=== PATIENT | female | born 1995 | race Hispanic/Latino ===

== ENCOUNTER 2019-02-10 10:20 | Inpatient (IN) | payer OTHER, SELFPAY ==
[2019-02-10] MEDS ORDERED: Promethazine HCl 25 MG/ML VIAL IM PRN ×3 (11:04→14:01)
[2019-02-10] MEDS ORDERED: Ondansetron PF 4 MG/2 ML Vial IVP PRN ×3 (11:04→14:01)
[2019-02-10] MEDS ORDERED: Lactated Ringer's 1,000 ML IV SCH (11:04)
[2019-02-10] MEDS ORDERED: CEFAZOLIN 2 GM in Premix Bag 1 BAG IVPB SCH (11:04)
[2019-02-10] MEDS ORDERED: Bicitra 30 ML UDCUP PO SCH (11:04)
[2019-02-10 11:22] VITALS: BMI 37.4
[2019-02-10] MEDS ORDERED: Bicitra 30 ML UDCUP ONE (12:00)
[2019-02-10] MEDS ORDERED: MORPHINE 5 MG/10 ML PF VIAL ONE (12:01)
[2019-02-10] MEDS ORDERED: Oxytocin 10 UNITS/ML VIAL ONE (12:01)
[2019-02-10 12:08] LABS: Hemoglobin 9.8 g/dL (12.0-16.0); Mean Corpuscular HGB CONC 32.9 g/dL (32.0-36.0); Mean Corpuscular Hemoglobin 26.1 pg (27.0-31.0); Mean Corpuscular Volume 79.3 fL (78.0-98.0); Mean Platelet Volume 8.5 fL (7.4-10.4); Platelet Count 223 thou/uL (130-400); RBC Distribution Width 13.5 % (11.5-14.5); Red Blood Cell (RBC) Count 3.74 mill/uL (4.20-5.40); White Blood Cell (WBC) Count 9.2 thou/uL (4.8-10.8)
[2019-02-10] MEDS ORDERED: Clindamycin/D5W 900 mg/50 ml Premix Bag ONE (12:12)
[2019-02-10] MEDS ORDERED: Clindamycin/D5W 900 MG in Premix Bag 1 BAG IVPB SCH (12:15)
--- NOTE | 2019-02-10 12:15 | PDOC.LDHP ---
Labor and Delivery H&P Chief complaint: scheduled section HPI: 23yo at 39.0w by LMP for repeat CS. No complaints today. Current gestational age (weeks): 39 Due date: 02/17/19 Dating criteria: last menstrual period Grav: 3 Para: 2 Current complications: none Abnormal US findings: No Past Medical History: hypothyroidism, hx of CT this s/p tx neg JENNA Current medications: pre-eliecer vitamins, other (levothyroxine 25mcg) Previous surgical history: low tranverse CS (x2) Allergies/Adverse Reactions: Allergies Allergy/AdvReac Type Severity Reaction Status Date / Time amoxicillin [From Augmentin] Allergy Verified 02/10/19 11:59 clavulanic acid Allergy Verified 02/10/19 11:59 [From Augmentin] Social history: none - Physical Exam Vital signs reviewed and normal: yes General: NAD Heart: RRR Lungs: CTAB Abdomen: gravid Extremeties: no edema FHT: category 1 [place] contractions every: none - OB Labs Blood type: O RH: positive Antibody Screen: negative HIV: negative RPR: negative HEPSAg: negative 1 hour GCT: negative GBS: negative Urine drug screen: positive Rubella: immune - Assessment L&D Assessment: scheduled repeat section - Plan Plan: admit to L&D, to OR for section, informed consent obtained, anesthesia consult for pain management
[2019-02-10] MEDS ORDERED: Simethicone Chewable 80 MG TAB PO PRN (12:16)
[2019-02-10] MEDS ORDERED: diphenhydrAMINE 25 MG CAP PO PRN (12:16)
[2019-02-10] MEDS ORDERED: Lanolin Ointment 7 GM TUBE TOP PRN (12:16)
[2019-02-10] MEDS ORDERED: Zolpidem Tartrate 5 MG TAB PO PRN (12:16)
[2019-02-10] MEDS ORDERED: Acetaminophen 325 MG TAB PO PRN (12:16)
[2019-02-10] MEDS ORDERED: Adacel (T-DAP) 0.5 ML SYRINGE IM ONE (12:16)
[2019-02-10] MEDS ORDERED: HYDROcodone/Acetaminophen 5/325 mg Tablet PO PRN ×2 (12:16)
[2019-02-10] MEDS ORDERED: Bisacodyl 10 MG SUPP PR PRN (12:16)
[2019-02-10] MEDS ORDERED: PHENYLEPHRINE-NS 100 MCG/ML 10 ML SYRINGE ONE (12:38)
[2019-02-10] MEDS ORDERED: Ondansetron PF 4 MG/2 ML Vial ONE (12:38)
[2019-02-10] MEDS ORDERED: Gentamicin Sulfate 120 MG in Premix Bag 1 BAG IVPB SCH (12:45)
[2019-02-10 12:58] LABS: Syphilis Antibody Nonreactive (Nonreactive); Syphilis Antibody Index 0.07 S/CO (<1.00 Non-Reactive)
[2019-02-10] MEDS ORDERED: Communication Order-Pharmacy FS SCH (14:00)
[2019-02-10] MEDS ORDERED: diphenhydrAMINE 50 MG/ML VIAL IVP PRN (14:01)
[2019-02-10] MEDS ORDERED: Meperidine HCl/PF 25 MG/ML VIAL SLOW IVP PRN (14:01)
[2019-02-10] MEDS ORDERED: Promethazine HCl 25 MG SUPP PR PRN (14:01)
[2019-02-10] MEDS ORDERED: Naloxone HCl 0.4 mg/ml Vial IV PRN (14:01)
[2019-02-10] MEDS ORDERED: HYDROmorphone 2 MG/ML VIAL SLOW IVP PRN (14:01)
[2019-02-10] MEDS ORDERED: Eucerin (Mineral Oil/Petrolatum,White) 30 gm Jar TOP PRN (14:01)
[2019-02-10] MEDS ORDERED: Ondansetron HCl/PF 4 MG/2 ML Vial IVP PRN (14:01)
[2019-02-10] MEDS ORDERED: Naloxone HCl 0.4 mg/ml Vial IVP PRN ×2 (14:01)
[2019-02-10] MEDS ORDERED: Meperidine HCl/PF 25 MG/ML VIAL ONE (14:03)
[2019-02-10 14:08] LABS: HBSAg Index 0.28 S/CO (0-0.99); Hep B Surf Ag Non-Reactive S/CO (NonReactive)
[2019-02-10] MEDS ORDERED: Ketorolac Tromethamine 30 MG/ML VIAL IVP SCH (14:15)
[2019-02-10] MEDS ORDERED: NS / Oxytocin 40 units/1000ml 1,000 ML ONE (14:42)
[2019-02-10] MEDS ORDERED: Ketorolac Tromethamine 30 MG/ML VIAL ONE (14:55)
[2019-02-10] MEDS: Ibuprofen 800 MG TAB PO SCH (15:49)
--- NOTE | 2019-02-10 18:07 | OP ---
DATE OF PROCEDURE: 02/10/2019 PREOPERATIVE DIAGNOSES: 1. Intrauterine at 39 weeks and zero days. 2. Prior x2. POSTOPERATIVE DIAGNOSES: 1. Intrauterine at 39 weeks and zero days. 2. Prior x2. PROCEDURE PERFORMED: Repeat low transverse section via Pfannenstiel skin incision. ANESTHESIA: Spinal. TEAM GUIDE SURGEON: Jahaira Encarnacion PA-C. QUANTITATIVE BLOOD LOSS: Pending. IVF: 1 L crystalloid. URINE OUTPUT: 200 mL of clear urine. COMPLICATIONS: None. DRAINS: Martinez catheter. PATHOLOGY: None. FINDINGS: Male infant, cephalic presentation, clear amniotic fluid. Apgars and weight are currently pending. Hysterotomy without extension. Fibrous adhesions to the lateral lower uterine segment bilaterally. Also, omental adhesions to the anterior abdominal wall were present. Normal uterus, ovaries, and tubes bilaterally were noted. OPERATIVE TECHNIQUE: The patient was taken to the operating room, where spinal anesthesia was obtained without difficulty. The patient was prepped and draped in a sterile fashion in the dorsal supine position with a leftward tilt. After ensuring adequacy of anesthesia, a Pfannenstiel skin incision was made and carried down to the underlying subcutaneous tissue with knife. Subcutaneous bleeders were cauterized with the Bovie. The fascia was nicked in midline with a knife and carried laterally with the Rice scissors. The superior aspect of the fascia was tented with two Mario's and dissected off the rectus using the Bovie. The inferior aspect of the fascia was tented with two Mario's and dissected off the rectus with the Rice down to the pubic symphysis. The peritoneum was bluntly entered into and manually retracted. The omental adhesions to the anterior abdominal wall were taken down with the Bovie and hemostasis was noted. The fibrous adhesions as well as the bladder flap were taken down below the level of the lower uterine segment with Bovie cautery, ensuring no bladder was contained within the area of dissection. The lower uterine segment was incised in a transverse fashion and extended with a Palomino maneuver. The infant's head was brought to the hysterotomy and delivered atraumatically with fundal pressure followed by the body. The 's cord was clamped and the handed to awaiting Adelfo team. Cord blood was obtained and the placenta was allowed to spontaneously deliver. The uterus was exteriorized, cleared of all clots and debris, and the posterior cul-de-sac was lapped out. The uterus was placed back into the abdomen, and the hysterotomy was repaired with #1 Monocryl in a running locking fashion with excellent hemostasis noted. The pelvis was copiously irrigated and suctioned including the pericolic gutters. Hemostasis was then again noted to be excellent. The Negrito O retractor was removed. The rectus muscles were examined and noted to be hemostatic. The fascia was reapproximated with 0 PDS x2 sutures with excellent reapproximation. The subcutaneous tissue was irrigated and cauterized of any bleeders and reapproximated with 2-0 plain gut in a running fashion. The skin was closed with 4-0 Monocryl in subcuticular fashion. Dermabond was applied, as well as a pressure dressing. The patient tolerated the procedure well. Sponge, lap, and needle counts were correct x2. The patient was taken to recovery room in stable condition. The patient received gentamicin and clindamycin for preop antibiotics. Job ID: [id number]
[2019-02-10] MEDS: Ketorolac Tromethamine 30 MG/ML VIAL IVP PRN (20:20)
[2019-02-11] MEDS ORDERED: HYDROcodone/Acetaminophen 5/325 mg Tablet PO PRN ×2 (02:00)
[2019-02-11] MEDS: Ibuprofen 800 MG TAB PO SCH ×5 (04:16→22:00)
[2019-02-11] MEDS: Ferrous Sulfate 325 MG TAB PO SCH ×2 (04:16→08:56)
[2019-02-11] MEDS: Docusate Calcium (SURFAK) 240 MG CAP PO SCH ×2 (04:16→08:56)
[2019-02-11] MEDS: Ketorolac Tromethamine 30 MG/ML VIAL IVP PRN (04:17)
[2019-02-11 05:55] LABS: Hemoglobin 8.1 g/dL (12.0-16.0); Mean Corpuscular HGB CONC 31.8 g/dL (32.0-36.0); Mean Corpuscular Hemoglobin 25.4 pg (27.0-31.0); Mean Corpuscular Volume 79.8 fL (78.0-98.0); Mean Platelet Volume 8.1 fL (7.4-10.4); Platelet Count 162 thou/uL (130-400); RBC Distribution Width 13.7 % (11.5-14.5); White Blood Cell (WBC) Count 7.3 thou/uL (4.8-10.8)
[2019-02-11] MEDS: Prenatal Vitamin 1 TAB PO SCH (08:56)
--- NOTE | 2019-02-11 12:22 | PDOC.PP ---
Post Progress Note Post Day #: 1 PO intake tolerated: yes Flatus: yes Ambulation: yes Vital Signs (12 hours) Temp Pulse Resp BP Pulse Ox 02/11/19 11:34 97.8 F 85 20 113/56 L 02/11/19 08:06 98.1 F 86 20 113/67 100 02/11/19 01:00 98.0 F 62 17 114/53 L Weight Weight 218 lb - Physical Examination General: NAD Cardiovascular: RRR Respiratory: non-labored breathing Abdominal: no distention, appropriately TTP Fundus firm & at: umb Extremities: negative homans (B) Skin: CS incision dry & intact Neurological: no gross focal deficits Psychiatric: normal affect Result Diagrams: 02/11/19 05:34 Additional Labs: Post Labs Blood Type O POSITIVE 02/10/19 14:24 Hep Bs Antigen Non-Reactive S/CO (NonReactive) 02/10/19 11:51 - Assessment/Plan POD1 s/p RCS VSSAF Hgb 9.8-->qbl 480-->hgb 8.1, no s/sx anemia, will cont iron supp on DC Routine postop advances, meeting milestones, no pain Bottlefeeding Rh pos RImm Cont postop care, possible home tomorrow.
[2019-02-12] MEDS: Ibuprofen 800 MG TAB PO SCH ×2 (07:23→07:24)
[2019-02-12] MEDS: Ferrous Sulfate 325 MG TAB PO SCH ×2 (07:25→09:04)
[2019-02-12] MEDS: Docusate Calcium (SURFAK) 240 MG CAP PO SCH ×2 (07:27→09:04)
[2019-02-12] MEDS: Prenatal Vitamin 1 TAB PO SCH (09:04)
[2019-02-12 11:25] VITALS: BP 130/73; TEMP 98
== END 2019-02-12 13:05 | disposition home or self-care (01) | DRG 788 ==
LOC: L&D 10:20 → 3SW 15:55
PROVIDERS: ADMIT Student in an Organized Health Care Education/Training Program; ATTEND Student in an Organized Health Care Education/Training Program
PROC: 10D00Z1 Extraction of Products of Conception, Low, Open Approach (ICD-10-PCS; principal; 2019-02-10)
DX: O34.211 Maternal care for low transverse scar from previous cesarean delivery (principal); O99.284 Endocrine, nutritional and metabolic diseases complicating childbirth; E03.9 Hypothyroidism, unspecified; Z37.0 Single live birth; Z3A.39 39 weeks gestation of pregnancy; Z88.1 Allergy status to other antibiotic agents; Z79.899 Other long term (current) drug therapy
CPT/HCPCS: 36415; 51702; 85027; 86780; 86850; 86900; 86901; 87340; J1580; J1885; J2175; J2270; J2405; J2590; J3490; Q0163